=== PATIENT | female | born 1945 | race Caucasian/White ===

== ENCOUNTER 2016-09-27 11:01 | Emergency (ER) | payer OTHER ==
[~2016-09-27] VITALS: Ht 167.6 cm; Wt 81.0 kg
[~2016-09-27 11:01] MED LIST: CHLO50TA PO; CITA-48 PO; LANSO15 PO; LEVO150T7 PO; LOSA25TA31 PO; METF-324 PO; METO25 PO; ZOCO40TA PO
[2016-09-27 11:06] VITALS: BP 165/84; PULSE 101; RESP 16; TEMP 97.7; O2SAT 96
[2016-09-27] MEDS ORDERED: ZOCO40TA PO (11:20)
[2016-09-27] MEDS ORDERED: CHLOR50 PO (11:20)
[2016-09-27] MEDS ORDERED: LEVO150T7 PO (11:20)
[2016-09-27] MEDS ORDERED: ASPI81CH7 CHEW (11:20)
[2016-09-27] MEDS ORDERED: METO25TA3 PO (11:20)
[2016-09-27] MEDS ORDERED: PREV15CA15 PO (11:20)
[2016-09-27] MEDS ORDERED: METF1000 PO (11:20)
[2016-09-27] MEDS ORDERED: COZA25TA PO (11:20)
[2016-09-27] MEDS ORDERED: CITA40TA4 PO (11:20)
--- NOTE | 2016-09-27 11:21 | PD ---
HPI Chief Complaint: Respiratory Symptoms Time Seen by Provider: 11:21 Travel History International Travel<30 days: No Contact w/Intl Traveler<30days: No Traveled to known affect area: No History of Present Illness HPI 71-year-old female potassium or department with 7 week history of ongoing cough and increased shortness of breath. Patient states she's had fevers off and on, with the start of it being a head cold. She now plains of productive cough with yellow-green sputum and increased shortness of breath with exertion. Patient denies chest pain, but has had headache with cough but no current sore throat, ear pain or other symptoms. She denies nausea, vomiting , or other abdominal symptoms. Patient was a 30 year smoker who quit in 1995. Patient currently uses no inhalers or steroids. She has needed steroids in the past for bronchitis. She is allergic to lisinopril. PFSH Past Medical History Hx Anticoagulant Therapy: Yes (asa 81mg) Asthma: No Blood Disorders: No Anxiety: No Depression: Yes Heart Rhythm Problems: Yes Cancer: No Cardiac Catheterization: Yes Cardiovascular Problems: Yes (htn on meds, [place] x 2 with stents) High Cholesterol: Yes ( ) Chemotherapy: No Chest Pain: Yes Congestive Heart Failure: No COPD: No Diabetes: Yes (Metformin 1000 mg twice) Patient Takes Glucophage: Yes Diminished Hearing: No Endocrine: Yes Gastrointestinal Disorders: No Genitourinary: No Hypertension: Yes Immune Disorder: No Implanted Vascular Access Dvce: No Musculoskeletal: Yes (Rt shoulder limit movement) Neurologic: No Psychiatric: Yes Reproductive: No Respiratory: No Myocardial Infarction: Yes (x2) Radiation Therapy: No Sleep Apnea: No Thyroid Disease: Yes Tetanus Vaccination: < 5 Years ?: Not Past Surgical History Appendectomy: Yes Cholecystectomy: Yes Hysterectomy: Yes Tonsillectomy: Yes Other Surgery: Yes (Hysterectomy, Apend, Gallblader, Tonsill, Rt shoulder) Social History Alcohol Use: No Tobacco Use: No Substance Use: No Allergies-Medications (Allergen,Severity, Reaction): Coded Allergies: Lisinopril (Verified Allergy, Severe, 09/27/16) Reported Meds & Prescriptions Reported Meds & Active Scripts Active Reported Zocor (Simvastatin) 40 Mg Tab 40 Mg PO DAILY Metoprolol Tartrate 25 Mg Tab 25 Mg PO BID Metformin (Metformin HCl) 1,000 Mg Tab 1,000 Mg PO BIDPC With meals Cozaar (Losartan Potassium) 25 Mg Tab 25 Mg PO DAILY Levothyroxine (Levothyroxine Sodium) 150 Mcg Tab 150 Mcg PO DAILY Prevacid (Lansoprazole) 15 Mg Capdr 15 Mg PO DAILY Citalopram (Citalopram Hydrobromide) 40 Mg Tab 40 Mg PO DAILY Chlorthalidone 50 Mg Tab 50 Mg PO DAILY Aspirin Children's (Aspirin) 81 Mg Chew 81 Mg CHEW DAILY Review of Systems Except as stated in HPI: all other systems reviewed are Neg General / Constitutional: Positive: Fever, Chills HENT: Positive: Headaches, Congestion (with cough.), No: Sore Throat, Rhinitis , Rhinorrhea, Neck Stiffness, Neck Pain, Earache Respiratory: Positive: Cough, Shortness of Breath, Wheezing, No: Sneezing, Orthopnea, Hemoptysis, Stridor, Night Sweats, Pleuritic Pain, Other Gastrointestinal: No: Nausea, Vomiting, Diarrhea, Abdominal Pain Physical Exam Narrative GENERAL: Patient appears no acute distress. SKIN: Warm and dry. Normal color. Normal turgor. HEAD: Atraumatic. Normocephalic. EYES: Pupils equal and round. No scleral icterus. No injection or drainage. ENT: No nasal bleeding or discharge. Mucous membranes pink and moist. TMs are clear bilaterally. No significant sinus tenderness. Pharynx is normal in appearance. Airway is patent. NECK: Trachea midline. No JVD. Supple nontender. CARDIOVASCULAR: Regular rate and rhythm. No murmurs gallops or rubs. RESPIRATORY: No accessory muscle use. Coarse diffuse wheezes throughout to auscultation. No rhonchi or rales. Breath sounds equal bilaterally. GASTROINTESTINAL: Abdomen soft, non-tender, nondistended. Hepatic and splenic margins not palpable. MUSCULOSKELETAL: Extremities without clubbing, cyanosis, or edema. No obvious deformities. NEUROLOGICAL: Awake and alert. No obvious cranial nerve deficits. Motor grossly within normal limits. Five out of 5 muscle strength in the arms and legs. Normal speech. PSYCHIATRIC: Appropriate mood and affect; insight and judgment normal. Data Data Last Documented VS Vital Signs Date Time Temp Pulse Resp B/P Pulse Ox O2 Delivery O2 Flow Rate FiO2 09/27/16 11:06 97.7 101 16 165/84 96 Orders Chest, Pa & Lat (09/27/16 11:27) Albuterol-Ipratropium Neb (Duoneb Neb) (09/27/16 11:30) Prednisone (Deltasone) (09/27/16 11:30) MDM Medical Decision Making Medical Screen Exam Complete: Yes Emergency Medical Condition: Yes Medical Record Reviewed: Yes Differential Diagnosis Bronchitis. Pneumonia. COPD with exacerbation. Narrative Course Patient is medically stable at time of exam. Patient is given 60 mg prednisone by mouth as well as DuoNeb 1. Chest x-ray is obtained. Chest x-ray shows no acute respiratory process per radiologist. Patient was treated for bronchitis with azithromycin 500 mg daily for the next 5 days. Patient is continued on prednisone 20 mg twice a day 5 days. Patient is given albuterol metered-dose inhaler 2 puffs every 4-6 hours when necessary. Patient is to push fluids and follow-up with her primary care physician in the next 10 days to ensure clearance. Patient can return to emergency Department with worsening symptoms as needed. Diagnosis Primary Impression: Chronic wheezy bronchitis Patient Instructions: Acute Bronchitis (ED), General Instructions, How to Use a Metered-Dose Inhaler (ED), Wheezing (ED) Additional Instructions: Chest x-ray shows no acute respiratory process per radiologist. Patient was treated for bronchitis with azithromycin 500 mg daily for the next 5 days. Patient is continued on prednisone 20 mg twice a day 5 days. Patient is given albuterol metered-dose inhaler 2 puffs every 4-6 hours when necessary. Patient is to push fluids and follow-up with her primary care physician in the next 10 days to ensure clearance. Patient can return to emergency Department with worsening symptoms as needed. Med/Other Pt SpecificInfo: Prescription(s) given Disposition: 01 DISCHARGE HOME Condition: Stable Julito Giles Sep 27, 2016 11:21
[2016-09-27] MEDS ORDERED: predniSONE 20 MG TAB PO ONE (11:30)
[2016-09-27] MEDS ORDERED: RESP: ALBUTEROL 2.5 MG/IPRATROPIUM 0.5 MG NEB (SCH) INH ONE (11:30)
--- NOTE | 2016-09-27 12:06 | RADHPO ---
EXAM DATE/TIME: 09/27/2016 11:44 [facility] COMPARISON: No previous studies available for comparison. INDICATIONS : Cough. MEDICAL HISTORY : Hypertension. Diabetes mellitus type II. Myocardial infarction. SURGICAL HISTORY : Cardiac Stents. ENCOUNTER: Initial ACUITY: 2 months PAIN SCORE: 0/10 LOCATION: Bilateral chest FINDINGS: PA and lateral views of the chest demonstrate a normal-sized cardiac silhouette. There is no effusion , consolidation, or pneumothorax. The bones and soft tissues demonstrate no acute abnormality. CONCLUSION: No acute cardiopulmonary abnormality is identified. Main Gaffney MD on September 27, 2016 at 12:04 Board Certified Radiologist. This report was verified electronically.
[2016-09-27] MEDS ORDERED: VENTAER INH (12:15)
[2016-09-27] MEDS ORDERED: PRED20 PO (12:15)
[2016-09-27] MEDS ORDERED: AZIT500T2 PO (12:15)
== END 2016-09-27 12:26 | disposition home or self-care (01) ==
LOC: PHEFT 11:01
DX: J42 Unspecified chronic bronchitis (principal); I25.2 Old myocardial infarction; I10 Essential (primary) hypertension; E78.00 Pure hypercholesterolemia, unspecified; E11.9 Type 2 diabetes mellitus without complications; Z79.4 Long term (current) use of insulin
CPT/HCPCS: 71020; 94664; 99284; J7512

== ENCOUNTER 2017-09-09 10:31 | Emergency (ER) | payer OTHER ==
[~2017-09-09] VITALS: Ht 165.1 cm; Wt 79.0 kg
[~2017-09-09 10:31] MED LIST changes: +ASPI81CH7 CHEW; +AZIT500T2 PO; -CHLO50TA PO; +CHLOR50 PO; -CITA-48 PO; +CITA40TA4 PO; +COZA25TA PO; -LANSO15 PO; -LOSA25TA31 PO; -METF-324 PO; +METF1000 PO; -METO25 PO; +METO25TA3 PO; +PRED20 PO; +PREV15CA20 PO; +VENTAER INH
[2017-09-09 11:12] VITALS: BP 199/77; PULSE 62; RESP 20; TEMP 98.7; O2SAT 94
[2017-09-09] MEDS ORDERED: SODIUM CHLOR 0.9% 1000 ML INJ 1,000 ML IV ONE ×2 (12:00→13:30)
--- NOTE | 2017-09-09 12:04 | PD ---
HPI Chief Complaint: Diabetic Time Seen by Provider: 11:34 Travel History International Travel<30 days: No Contact w/Intl Traveler<30days: No Traveled to known affect area: No History of Present Illness HPI 72-year-old female presents to the emergency department for evaluation of hyperglycemia for 2 weeks. Patient is type II diabetic. She states that her blood sugar has been running high for 2 weeks. She followed up with her primary care physician recently. She states she was started on Levemir and started it yesterday. She states she stopped her glipizide when she was started on her Levemir. She states her blood glucose this morning was 500. She reports headache for 2 weeks, fatigue, polydipsia, polyuria. She denies any fevers or chills. No chest pain or shortness breath. No abdominal pain. No vomiting or diarrhea. She does report associated nausea. Current headache is 5/10 to the frontal and occipital region. She reports history of headaches and states she has had this headache intermittently for 2 weeks due to her high blood sugar. Patient denies any history of DKA. No exacerbating or alleviating factors. Moderate severity. PFSH Past Medical History Hx Anticoagulant Therapy: Yes (asa 81mg) Asthma: No Blood Disorders: No Anxiety: No Depression: Yes Heart Rhythm Problems: Yes Cancer: No Cardiac Catheterization: Yes Cardiovascular Problems: Yes High Cholesterol: Yes ( ) Chemotherapy: No Chest Pain: Yes Congestive Heart Failure: No COPD: No Diabetes: Yes Diminished Hearing: No Endocrine: Yes Gastrointestinal Disorders: No Genitourinary: No Hypertension: Yes Immune Disorder: No Implanted Vascular Access Dvce: No Musculoskeletal: Yes (Rt shoulder limit movement) Neurologic: No Psychiatric: Yes Reproductive: No Respiratory: No Myocardial Infarction: Yes (x2) Radiation Therapy: No Sleep Apnea: No Thyroid Disease: Yes Past Surgical History Appendectomy: Yes Cholecystectomy: Yes Hysterectomy: Yes Tonsillectomy: Yes Other Surgery: Yes (Hysterectomy, Apend, Gallblader, Tonsill, Rt shoulder) Social History Alcohol Use: No Tobacco Use: No Substance Use: No Allergies-Medications (Allergen,Severity, Reaction): Coded Allergies: lisinopril (Unverified Allergy, Severe, 09/09/17) Reported Meds & Prescriptions Reported Meds & Active Scripts Active Ventolin Hfa 18 GM Inh (Albuterol Sulfate) 90 Mcg/Act Aer 2 Puff INH Q4-6H PRN Reported Glipizide 5 Mg Tab 5 Mg PO BIDAC Take 30 minutes before a meal Lorazepam 0.5 Mg Tab 0.5 Mg PO DAILY PRN Zoloft (Sertraline HCl) 100 Mg Tab 100 Mg PO DAILY Clonazepam 0.5 Mg Tab 0.5 Mg PO BID Levemir Flextouch Pen Inj (Insulin Detemir) 300 unit/3 ML Pen 1 Units SQ Zocor (Simvastatin) 40 Mg Tab 40 Mg PO DAILY Metoprolol Tartrate 25 Mg Tab 25 Mg PO BID Cozaar (Losartan Potassium) 25 Mg Tab 25 Mg PO DAILY Levothyroxine (Levothyroxine Sodium) 150 Mcg Tab 150 Mcg PO DAILY Prevacid (Lansoprazole) 15 Mg Capdr 15 Mg PO DAILY Chlorthalidone 50 Mg Tab 50 Mg PO DAILY Aspirin Children's (Aspirin) 81 Mg Chew 81 Mg CHEW DAILY Review of Systems Except as stated in HPI: all other systems reviewed are Neg Physical Exam Narrative GENERAL: Well-nourished, well-developed female patient, ambulatory. Afebrile. SKIN: Focused skin assessment warm/dry. HEAD: Normocephalic. Atraumatic. EYES: No scleral icterus. No injection or drainage. NECK: Supple, trachea midline. No JVD or lymphadenopathy. CARDIOVASCULAR: Regular rate and rhythm without murmurs, gallops, or rubs. RESPIRATORY: Breath sounds equal bilaterally. No accessory muscle use. Lungs sounds are clear to auscultation. GASTROINTESTINAL: Abdomen soft, non-tender, nondistended. MUSCULOSKELETAL: No cyanosis, or edema. BACK: Nontender without obvious deformity. No CVA tenderness. Data Data Last Documented VS Vital Signs Date Time Temp Pulse Resp B/P (MAP) Pulse Ox O2 Delivery O2 Flow Rate FiO2 09/09/17 14:01 50 16 136/65 (88) 98 Room Air 09/09/17 11:12 98.7 Orders Orders Electrocardiogram (09/09/17 11:55) Complete Blood Count With Diff (09/09/17 11:55) Comprehensive Metabolic Panel (09/09/17 11:55) Magnesium (Mg) (09/09/17 11:55) Beta Hydroxybutyrate (Acetone) (09/09/17 11:55) Urinalysis - C+S If Indicated (09/09/17 11:55) Sodium Chlor 0.9% 1000 Ml Inj (Ns 1000 M (09/09/17 12:00) Sodium Chlor 0.9% 1000 Ml Inj (Ns 1000 M (09/09/17 13:30) Insulin Human Regular Inj (Novolin R Inj (09/09/17 13:30) Blood Glucose (09/09/17 14:26) Labs Laboratory Tests Test 09/09/17 12:00 09/09/17 12:05 White Blood Count 6.0 TH/MM3 Red Blood Count 3.89 MIL/MM3 Hemoglobin 12.5 GM/DL Hematocrit 36.2 % Mean Corpuscular Volume 93.0 FL Mean Corpuscular Hemoglobin 32.0 PG Mean Corpuscular Hemoglobin Concent 34.4 % Red Cell Distribution Width 14.1 % Platelet Count 213 TH/MM3 Mean Platelet Volume 8.9 FL Neutrophils (%) (Auto) 45.6 % Lymphocytes (%) (Auto) 41.6 % Monocytes (%) (Auto) 8.6 % Eosinophils (%) (Auto) 3.5 % Basophils (%) (Auto) 0.7 % Neutrophils # (Auto) 2.7 TH/MM3 Lymphocytes # (Auto) 2.5 TH/MM3 Monocytes # (Auto) 0.5 TH/MM3 Eosinophils # (Auto) 0.2 TH/MM3 Basophils # (Auto) 0.0 TH/MM3 CBC Comment DIFF FINAL Differential Comment Blood Urea Nitrogen 30 MG/DL Creatinine 1.76 MG/DL Random Glucose 432 MG/DL Total Protein 7.1 GM/DL Albumin 3.2 GM/DL Calcium Level 8.9 MG/DL Magnesium Level 1.8 MG/DL Alkaline Phosphatase 136 U/L Aspartate Amino Transf (AST/SGOT) 20 U/L Alanine Aminotransferase (ALT/SGPT) 26 U/L Total Bilirubin 0.4 MG/DL Sodium Level 136 MEQ/L Potassium Level 3.5 MEQ/L Chloride Level 101 MEQ/L Carbon Dioxide Level 23.6 MEQ/L Anion Gap 11 MEQ/L Estimat Glomerular Filtration Rate 28 ML/MIN B-Hydroxybutyrate 0.08 MMOL/L Urine Color YELLOW Urine Turbidity CLEAR Urine pH 5.0 Urine Specific [place] 1.024 Urine Protein NEG mg/dL Urine Glucose (UA) 1000 mg/dL Urine Ketones NEG mg/dL Urine Occult Blood NEG Urine Nitrite NEG Urine Bilirubin NEG Urine Urobilinogen LESS THAN 2.0 MG/DL Urine Leukocyte Esterase NEG Urine RBC 1 /hpf Urine WBC 1 /hpf Urine Squamous Epithelial Cells 1 /hpf Urine Bacteria RARE /hpf Urine Hyaline Casts 1 /lpf Microscopic Urinalysis Comment CULT NOT INDICATED MDM Medical Decision Making Medical Screen Exam Complete: Yes Emergency Medical Condition: Yes Medical Record Reviewed: Yes Differential Diagnosis Hyperglycemia versus DKA versus electrolyte abnormality Narrative Course 72-year-old female presents to the emergency department for evaluation of hyperglycemia for 2 weeks. She recently follow-up with her primary care physician and was started on Levemir, but discontinued her glipizide. She is on no other diabetic medications other than Levemir. EKG, CBC, CMP, magnesium, beta hydroxybutyrate are ordered and pending. Patient is given normal saline 1 L IV bolus. EKG shows sinus bradycardia, heart rate 48, no acute ST changes. CBC shows no acute abnormality. CMP shows BUN 30, creatinine 1.76. This is the patient's baseline. Glucose is 432.. Magnesium is 1.8. Beta hydroxybutyrate 0.08. UA shows 1000 glucose, no evidence of infection. She is given second liter normal saline IV bolus, 5 units regular insulin IV. 1444 - I spoke to the patient's primary care physician, Dr. Ilan lindsey. She states that she would follow-up with her that she should call her primary care physician if her blood sugars continue to the greater than 400. She is aware that the patient has been here for hyperglycemia. Recheck a blood glucose of 127. Patient is to monitor blood sugar closely and follow-up with her primary care physician. The patient was discharged in stable condition with instructions, including return instructions and follow up instructions. Diagnosis Primary Impression: Hyperglycemia Referrals: Primary Care Physician 3 days Patient Instructions: Diabetic Hyperglycemia (ED), General Instructions Additional Instructions: Continue your Levemir. Follow-up with your primary care physician next week. Call her and let her know if your blood sugar continues to be greater than 400. Return to the emergency department for any acute worsening of symptoms. Med/Other Pt SpecificInfo: No Change to Meds Disposition: 01 DISCHARGE HOME Condition: Stable Michelle Freed Sep 09, 2017 12:04
[2017-09-09 12:35] LABS: BACTERIA, URINE RARE /hpf; BILIRUBIN, URINE NEG (NEG); BLOOD, URINE NEG (NEG); GLUCOSE,URINE 1000 mg/dL (NEG); HYALINE CAST, URINE 1 /lpf (RARE); KETONE, URINE NEG (NEG); NITRITE,URINE NEG (NEG); SQUAMOUS EPITHELIAL CELL URINE 1 /hpf (0-5); URINE COLOR YELLOW (YELLW/STRAW); URINE LEUKOCYTE ESTERASE NEG (NEG)
[2017-09-09 12:39] LABS: AUTOMATED NEUTROPHIL # 2.7 TH/MM3 (1.8-7.7); BASOPHIL % 0.7 % (0.0-2.0); EOSINOPHIL # 0.2 TH/MM3 (0-0.4); EOSINOPHIL % 3.5 % (0.0-4.0); HEMATOCRIT 36.2 % (35.0-46.0); HEMOGLOBIN 12.5 GM/DL (11.6-15.3); LYMPH % 41.6 % (9.0-44.0); LYMPHOCYTE # 2.5 TH/MM3 (1.0-4.8); MEAN CORPUSCULAR HGB CONC 34.4 % (32.0-36.0); MEAN PLATELET VOLUME 8.9 FL (7.0-11.0); MONO % 8.6 % (0.0-8.0); MONOCYTE # 0.5 TH/MM3 (0-0.9); NEUT % 45.6 % (16.0-70.0); PLATELET COUNT 213 TH/MM3 (150-450); RED BLOOD COUNT 3.89 MIL/MM3 (4.00-5.30); RED CELL DISTRIBUTION WIDTH 14.1 % (11.6-17.2)
[2017-09-09 13:00] LABS: ALBUMIN 3.2 GM/DL (3.4-5.0); ALKALINE PHOSPHATASE 136 U/L (45-117); ALT (GPT) 26 U/L (10-53); AST (GOT) 20 U/L (15-37); BICARBONATE 23.6 MEQ/L (21.0-32.0); BLOOD UREA NITROGEN 30 MG/DL (7-18); CALCIUM 8.9 MG/DL (8.5-10.1); CHLORIDE 101 MEQ/L (98-107); CREATININE 1.76 MG/DL (0.50-1.00); GLOMERULAR FILTRATION RATE 28 ML/MIN (>89); GLUCOSE,RANDOM 432 MG/DL (74-106); MAGNESIUM 1.8 MG/DL (1.5-2.5); SODIUM (NA) 136 MEQ/L (136-145); TOTAL BILIRUBIN ADULT 0.4 MG/DL (0.2-1.0); TOTAL PROTEIN 7.1 GM/DL (6.4-8.2)
[2017-09-09] MEDS ORDERED: INSULIN HUMAN REGULAR 1,000 UNITS/10 ML VIAL IV PUSH ONE (13:30)
[2017-09-09 14:01] VITALS: BP 136/65; PULSE 50; RESP 16; O2SAT 98
[2017-09-09] MEDS ORDERED: LORA0.5T PO (14:09)
[2017-09-09] MEDS ORDERED: CLON0.5T PO (14:09)
[2017-09-09] MEDS ORDERED: ZOLO100T PO (14:09)
[2017-09-09] MEDS ORDERED: INSU1INJ5 SQ (14:09)
[2017-09-09] MEDS ORDERED: GLIP5TAB8 PO (14:10)
[2017-09-09 15:45] VITALS: BP 136/65
--- NOTE | 2017-09-10 19:15 | EKG ---
Date Performed: 09/09/2017 Time Performed: 12:27:52 PTAGE: 72 years EKG: SINUS BRADYCARDIA MARKED LEFT AXIS DEVIATION PATTERN CONSISTENT WITH PULMONARY DISEASE NONS PECIFIC ST & T-WAVE ABNORMALITY ABNORMAL ECG NO PREVIOUS TRACING DOCTOR: Jay Figueroa Interpretating Date/Time 09/10/2017 19:13:39
== END 2017-09-09 15:46 | disposition home or self-care (01) ==
LOC: NEPE 10:31
DX: E11.65 Type 2 diabetes mellitus with hyperglycemia (principal); R94.31 Abnormal electrocardiogram [ECG] [EKG]; F32.9 Major depressive disorder, single episode, unspecified; E78.00 Pure hypercholesterolemia, unspecified; I10 Essential (primary) hypertension; I25.2 Old myocardial infarction
CPT/HCPCS: 80053; 81001; 82010; 83735; 85025; 93005; 96361; 96374; 99284; J1815; J7030